=== PATIENT | female | born 1935 | race Caucasian/White ===

== ENCOUNTER 2018-10-27 10:11 | Emergency (ER) | payer MEDICARE ==
[~2018-10-27 10:11] MED LIST: Iopamidol 370 76% 125 ML VIAL FS ONE; Sodium Chloride 0.9% 100 ML BAG ONE
[2018-10-27 11:34] LABS: ALT (SGPT) 21 U/L (8-55); AST (SGOT) 17 U/L (5-34); Alkaline Phosphatase 83 U/L (40-150); Anion Gap 14 mmol/L (10-20); BUN (Urea Nitrogen) 13 mg/dL (9.8-20.1); Band 2 % (5-11); Bilirubin, Total 1.1 mg/dL (0.2-1.2); Bite Cells SLIGHT = 2-5 cells (100X) (0-1/hpf); CK (CPK) 12 U/L (29-168); Calc. Creatinine Clearance 0 mL/min (70-130); Calcium 8.8 mg/dL (7.8-10.44); Carbon Dioxide 29 mmol/L (23-31); Chloride 94 mmol/L (98-107); Estimated GFR-MDRD Greater than 90; Globulin 3.1 g/dL (2.4-3.5); Glucose 146 mg/dL (83-110); Hemoglobin 13.9 g/dL (12.0-16.0); MDiff Complete? YES; Mean Corpuscular HGB CONC 33.1 g/dL (32.0-36.0); Mean Corpuscular Hemoglobin 31.8 pg (27.0-31.0); Mean Platelet Volume 5.9 fL (7.4-10.4); Monocytes 4 % (0-10); Neutrophil 87 % (42-75); PLT Morphology Comment Appears Increased; Platelet Count 404 thou/uL (130-400); Potassium 4.6 mmol/L (3.5-5.1); Protein, Total 6.1 g/dL (6.0-8.3); RBC Distribution Width 13.6 % (11.5-14.5); RBC Morphology Normal; Reactive Lymphocytes 7 % (0-10); Red Blood Cell (RBC) Count 4.38 mill/uL (4.20-5.40); Sodium 132 mmol/L (136-145); White Blood Cell (WBC) Count 13.7 thou/uL (4.8-10.8)
--- NOTE | 2018-10-27 14:17 | CT ---
CT ANGIOGRAM CHEST: Date: 10/27/18 COMPARISON: 11/22/13. HISTORY: Hypoxia. TECHNIQUE: Axial CT imaging at 2.5 mm intervals through the chest with IV contrast using a CT angiogram protocol . Coronal and oblique sagittal 3D reformatted imaging obtained. FINDINGS: Evaluation is limited on the basis of persistent patient motion artifact and marked kyphosis. No obvi ous filling defect is noted within the pulmonary arterial trunk or either main pulmonary artery. Dist al lobar, segmental and subsegmental pulmonary arteries are limited in assessment. No evidence for a central pulmonary arterial embolism is noted. No axillary lymphadenopathy. No obvious mediastinal or hilar adenopathy. Limited assessment of the up per abdomen, limited on the basis of motion artifact, demonstrates atherosclerotic calcification of t he abdominal aorta and its branches. Trace bilateral pleural effusions are noted, left larger than right. No pneumothorax seen on either side. There is a subtle hazy area of ground-glass opacity in the posteromedial aspect of the right upper lo be. There is dense multifocal consolidative change involving the right lower lobe, particularly the s uperior segment. There is patchy posterior focal consolidation involving right middle lobe. There is focal peripheral consolidative change involving the inferior aspect of the lingula and there is near complete consolidation of the left lower lobe. A moderate sized hiatal hernia is present. Review of the osseous structures demonstrates diffuse osteopenia. No worrisome lytic or blastic bone lesion. There is material within the distal mainstem bronchus on the left extending into the bronchi supplyin g the left lower lobe, suggesting aspiration. Follow-up bronchoscopy suggested. IMPRESSION: 1. Limited study demonstrating no central pulmonary arterial embolism. 2. Multifocal consolidative change noted bilaterally, left greater than right. Findings suggest mult ifocal infectious pneumonitis/aspiration. There is evidence of material within the bronchus supplying the left lower lobe and involving the distal left mainstem bronchus, evidence of aspiration and/or m ucus plugging. POS: [facility]
== END 2018-10-27 14:48 | disposition short-term general hospital (02) ==
LOC: MADERS 10:11
DX: R09.02 Hypoxemia (principal); Z86.73 Personal history of transient ischemic attack (TIA), and cerebral infarction without residual deficits; E03.9 Hypothyroidism, unspecified; F03.90 Unspecified dementia, unspecified severity, without behavioral disturbance, psychotic disturbance, mood disturbance, and anxiety; Z87.891 Personal history of nicotine dependence; Z79.899 Other long term (current) drug therapy
CPT/HCPCS: 36415; 71275; 80053; 82550; 84443; 84484; 85025; 87804; 93005; J7050

== ENCOUNTER 2018-11-22 08:09 | Emergency (ER) | payer MEDICARE ==
[~2018-11-22 08:09] MED LIST changes: -Iopamidol 370 76% 125 ML VIAL FS ONE; +Sodium Chloride 0.9% 1,000 ML BAG ONE
[2018-11-22 08:31] LABS: #Basophils 0.1 thou/uL (0.0-0.2); #Eosinphils 0.1 thou/uL (0.0-0.7); #Monocytes 0.7 thou/uL (0.11-0.59); #Neutrophils 4.5 thou/uL (1.40-6.50); %Eosinophils 1.8 % (0.0-10.0); %Lymphocytes 15.2 % (21.0-51.0); %Monocytes 11.4 % (0.0-10.0); %Neutrophils 70.6 % (42.0-75.0); Hemoglobin 12.9 g/dL (12.0-16.0); Mean Corpuscular HGB CONC 31.4 g/dL (32.0-36.0); Mean Corpuscular Hemoglobin 30.7 pg (27.0-31.0); Mean Corpuscular Volume 97.8 fL (78.0-98.0); Mean Platelet Volume 6.1 fL (7.4-10.4); Platelet Count 397 thou/uL (130-400); Red Blood Cell (RBC) Count 4.21 mill/uL (4.20-5.40); White Blood Cell (WBC) Count 6.3 thou/uL (4.8-10.8)
[2018-11-22 08:42] LABS: ALT (SGPT) 10 U/L (8-55); AST (SGOT) 9 U/L (5-34); Albumin 2.8 g/dL (3.4-4.8); Alkaline Phosphatase 73 U/L (40-150); Anion Gap 13 mmol/L (10-20); BUN (Urea Nitrogen) 9 mg/dL (9.8-20.1); Bilirubin, Total 0.6 mg/dL (0.2-1.2); Calc. Creatinine Clearance 0 mL/min (70-130); Calcium 8.5 mg/dL (7.8-10.44); Carbon Dioxide 29 mmol/L (23-31); Chloride 104 mmol/L (98-107); Estimated GFR-MDRD Greater than 90; Globulin 2.5 g/dL (2.4-3.5); Glucose 99 mg/dL (83-110); Potassium 4.1 mmol/L (3.5-5.1); Protein, Total 5.3 g/dL (6.0-8.3); Sodium 142 mmol/L (136-145)
--- NOTE | 2018-11-22 08:56 | RAD ---
CHEST 1 VIEW: Date: 11/22/18 HISTORY: Cough. COMPARISON: 10/27/18. FINDINGS: Cardiac silhouette is magnified, enlarged, and partially obscured by bilateral pleural fluid and biba silar infiltrates. Pulmonary vasculature is engorged with mild bilateral perihilar infiltrate. No hai dence of pneumothorax. IMPRESSION: CHF with bilateral pleural fluid. POS: [facility]
[2018-11-22 09:25] LABS: Bilirubin Negative (Negative); Blood, Urine Large (Negative); Glucose, Urine (Dipstick) Negative (Negative); Leukocyte Moderate (Negative); Nitrite Negative (Negative); Protein, Urine (Dipstick) 100 mg/dL (Neg-Trace); pH, Urine 5.5 (5.0-9.0)
[2018-11-22 09:26] LABS: Bacteria/HPF 1+ HPF (None Seen); Clarity Hazy (Clear); RBC/HPF GREATER THAN 50-TNTC HPF (0-3); Squamous Epithelial 0-3 HPF (0-3)
[2018-11-22] MEDS ORDERED: Piperacillin/Tazobactam 3.375 GM VIAL ONE (09:51)
[2018-11-22] MEDS ORDERED: Sodium Chloride 0.9% 100 ML ONE (09:51)
[2018-11-22] MEDS ORDERED: Diltiazem 125 MG/25 ML ONE (10:08)
== END 2018-11-22 10:43 | disposition short-term general hospital (02) ==
LOC: MADERS 08:09
DX: I48.91 Unspecified atrial fibrillation (principal); I50.9 Heart failure, unspecified; N39.0 Urinary tract infection, site not specified; Z86.73 Personal history of transient ischemic attack (TIA), and cerebral infarction without residual deficits; E03.9 Hypothyroidism, unspecified; F03.90 Unspecified dementia, unspecified severity, without behavioral disturbance, psychotic disturbance, mood disturbance, and anxiety; Z87.891 Personal history of nicotine dependence
CPT/HCPCS: 71045; 80053; 81003; 81015; 83605; 83880; 84443; 84484; 85025; 87040; 93005; 94760; 96365; 96368; 96376; J2543; J7050

== ENCOUNTER 2019-06-24 19:19 | Emergency (ER) | payer MEDICARE ==
[2019-06-24 20:20] LABS: Clarity CLOUDY (Clear)
[2019-06-24 20:21] LABS: Bilirubin Small (Negative); Blood, Urine Trace (Negative); Glucose, Urine (Dipstick) Negative (Negative); Leukocyte Small (Negative); Nitrite Negative (Negative); Protein, Urine (Dipstick) 100 mg/dL (Neg-Trace)
[2019-06-24 20:22] LABS: Bacteria/HPF 2+ HPF (None Seen); RBC/HPF 0-3 HPF (0-3); WBC/HPF 21-50 HPF (0-3); Yeast-Budding 1+ HPF (None Seen)
--- NOTE | 2019-06-24 20:36 | CT ---
CT Brain WO Con: 06/24/2019 7:40 PM CLINICAL HISTORY: Fall with altered mental status. IMAGING TECHNIQUE: Multiple CT images were obtained of the brain without IV contrast. COMPARISON: CT brain dated June 01, 2015 FINDINGS: Infarct: No acute infarct is evident. There is an interval remote infarct involving the left cerebel lum. Stable remote infarct involving the left parietal lobe. There is moderate chronic small vessel white matter ischemic change. Hemorrhage: None.. Hydrocephalus: None.. Basal cisterns: Normal.. Cerebral parenchyma: Normal.. Midline shift: None.. Cerebellum: Normal. Brainstem: Normal. OTHER: Calvarium: Intact.. Visualized Paranasal sinuses: Clear.. Extracranial soft tissues:Normal. IMPRESSION: No acute intracranial abnormality. Chronic ischemic change as above
[2019-06-24 20:42] LABS: INR-International Normal Ratio 2.6; PTT 42.5 SEC (22.9-36.1); Prothrombin Time 27.8 SEC (12.0-14.7)
--- NOTE | 2019-06-24 20:42 | CT ---
CT Cervical Spine WO Con Indication: Fall with altered mental status COMPARISON: None. FINDINGS: The patient couldn't tolerate scanning supine. The patient could only tolerate scanning lay ing on there left side. Exam detail is limited due to patient positioning. Acute fracture/subluxation: None. Spinal alignment: No acute malalignment. Craniocervical junction: Within normal limits. Vertebral body heights: Maintained. Cervical spine degenerative change: There is moderate to severe multilevel spondylosis. There is diff use osteopenia. Lung apices: Clear. IMPRESSION: No definite acute fracture or subluxation evident within the limitations of this exam.
[2019-06-24 20:53] LABS: ALT (SGPT) 12 U/L (8-55); AST (SGOT) 10 U/L (5-34); Albumin 3.5 g/dL (3.4-4.8); Alkaline Phosphatase 74 U/L (40-150); Anion Gap 15 mmol/L (10-20); BUN (Urea Nitrogen) 24 mg/dL (9.8-20.1); Bilirubin, Total 1.1 mg/dL (0.2-1.2); Calc. Creatinine Clearance 0 mL/min (70-130); Calcium 8.4 mg/dL (7.8-10.44); Carbon Dioxide 26 mmol/L (23-31); Chloride 101 mmol/L (98-107); Estimated GFR-MDRD 56; Globulin 2.7 g/dL (2.4-3.5); Glucose 149 mg/dL (83-110); Potassium 3.7 mmol/L (3.5-5.1); Protein, Total 6.2 g/dL (6.0-8.3); Sodium 138 mmol/L (136-145)
[2019-06-24] MEDS ORDERED: cefTRIAXone\\ROCEPHIN 1 GM VIAL ONE (20:56)
[2019-06-24] MEDS ORDERED: Sodium Chloride 0.9% 100 ML ONE (20:56)
[2019-06-24 20:57] LABS: Band 2 % (5-11); Hemoglobin 11.1 g/dL (12.0-16.0); Hypochromia MODERATE=16-30 cells (100X) (0-5/hpf); Lymphocytes 1 % (21-51); MDiff Complete? YES; Mean Corpuscular HGB CONC 30.7 g/dL (32.0-36.0); Mean Corpuscular Hemoglobin 20.4 pg (27.0-31.0); Mean Corpuscular Volume 66.3 fL (78.0-98.0); Mean Platelet Volume 6.2 fL (7.4-10.4); Monocytes 5 % (0-10); Neutrophil 91 % (42-75); Platelet Count 653 thou/uL (130-400); Platelet Morphology Comment Appears Increased; RBC Distribution Width 17.5 % (11.5-14.5); RBC Morphology Abnormal; Red Blood Cell (RBC) Count 5.47 mill/uL (4.20-5.40); White Blood Cell (WBC) Count 23.2 thou/uL (4.8-10.8)
== END 2019-06-24 22:25 | disposition short-term general hospital (02) ==
LOC: MADERS 19:19
DX: I67.9 Cerebrovascular disease, unspecified (principal); L89.619 Pressure ulcer of right heel, unspecified stage; I48.91 Unspecified atrial fibrillation; N39.0 Urinary tract infection, site not specified; E03.9 Hypothyroidism, unspecified; F03.90 Unspecified dementia, unspecified severity, without behavioral disturbance, psychotic disturbance, mood disturbance, and anxiety; Z87.891 Personal history of nicotine dependence; Z79.899 Other long term (current) drug therapy; Z79.01 Long term (current) use of anticoagulants
CPT/HCPCS: 70450; 72125; 80053; 81003; 81015; 83605; 83880; 84484; 85025; 85610; 85730; 87040; 87077; 87086; 87149; 87186; 93005; 94760; 96365; 96374; 96376; J0696; J3490

== ENCOUNTER 2019-07-02 16:21 | Inpatient (IN) | payer MEDICARE ==
[2019-07-02] MEDS ORDERED: ERTAPENEM 1 GM IVPB SCH (17:15)
[2019-07-02] MEDS ORDERED: Furosemide 40 MG TAB PO SCH ×2 (21:00)
[2019-07-02] MEDS ORDERED: Metoprolol Tartrate 50 MG TAB PO SCH (21:00)
[2019-07-02] MEDS: Famotidine 20 MG TAB PO SCH (21:00)
[2019-07-02] MEDS: Apixaban 5 MG TAB PO SCH (22:23)
[2019-07-02] MEDS: Atorvastatin Calcium 10 MG TAB PO SCH (22:24)
[2019-07-02] MEDS: Metoprolol Tartrate 50 MG TAB PO SCH (22:33)
--- NOTE | 2019-07-03 00:10 | HP ---
PRIMARY CARE PHYSICIAN: Barbie Marie MD REASON FOR ADMISSION: To continue IV antibiotic therapy in [facility]. HISTORY OF PRESENT ILLNESS AND HOSPITAL COURSE: Ms. Mckoy is an 83-year-old female with multiple chronic medical conditions including chronic CHF, atrial fibrillation, hypertension, chronic right foot ulceration, dementia, osteoarthritis. The patient was sent to the ER on 06/24/2019, secondary to fall/weakness. Per family, the patient was apparently doing okay at her baseline functional status when they found her on the floor on 06/24/2019 at home. She was sent to [place] [facility] for evaluation. On initial evaluation, there was an area of erythema and ulceration in the medial aspect of the right midfoot region. Per daughter, this wound had dried up and closed for a little while. Per daughter, thw wound opened up again approximately this week before admission. There was some questionable history of some focal weakness prior to admission, but nothing was noted upon admission. She had a CT scan of the brain, which showed an old left posterior parietal stroke. Her echocardiogram was 55% to 60% ejection fraction. Dr. Blackburn was consulted for a questionable transient ischemic attack. The patient is currently on anticoagulation, and statin therapy was added by Dr. Blackburn. On admission, she has a white count of 23,000. The patient was treated for inflammatorychanges/bacteremia. Blood culture came back negative x2. While in the hospital, the patient remained febrile free. There was a concern of possible osteomyelitis per consultation with Dr. Tamayo/Infectious Disease Specialist. The patient had declined any surgical intervention and the plan is just to continue broad-spectrum coverage including Vancomycin and Ertapenem for a protracted period of time. A PICC line was placed and the patient was subsequently transferred to [facility] to complete IV antibiotic therapy until July 10. There was an order from Dr. Tamayo that recommended repeat x-ray of the right foot and consider MRI later on. Then, followup x-rays at 4 and 8 weeks post IV antibiotic therapy. Her white count trended down to 11.3 on 07/02/2019 prior to discharge. Her latest vancomycin trough on 06/29/2019 was 14.8. On admission, the patient was seen resting comfortably in bed. She was eating dinner without issues. There was no family present at the time of examination. The patient reports she is doing well and reports no significant pain or discomfort at this time. She reports no other issues at this time. PAST MEDICAL HISTORY: CHF, hypertension, atrial fibrillation, osteoarthritis, unsteady gait, hypothyroidism, hard of hearing, osteoarthritis, chronic right foot wound that had healed up recently, now reopen. GERD, chronic anemia, hypothyroidism, constipation, dementia, history of falls, COPD and history of diabetes type 2. PAST SURGICAL HISTORY: Thyroidectomy, hysterectomy, cholecystectomy, appendectomy, previous tube for hemothorax. ALLERGIES: NKDA. MEDICATIONS: 1. Eliquis 5 mg p.o. b.i.d. 2. Atorvastatin 10 mg p.o. at bedtime. 3. Digoxin 0.125 mg p.o. q.a.m. 4. Diltiazem 180 mg p.o. daily. 5. Ertapenem 1 g IV q.24 hours. 6. Famotidine 20 mg p.o. b.i.d. 7. Ferrous sulfate 325 mg p.o. q.a.m. 8. Furosemide 40 mg p.o. b.i.d. 9. Ipratropium bromide 3 mL q.4 hours p.r.n. 10. Levothyroxine 88 mcg p.o. q.a.m. 11. Metoprolol 50 mg p.o. b.i.d. 12. Polyethylene glycol 17 g p.o. daily. 13. Vancomycin 1.75 g q.24 hours daily. 14. Saccharomyces 250 mg p.o. daily. SOCIAL HISTORY: She was a previous smoker. No history of alcohol use or substance abuse. She lives independently at home. Her medical decision maker is her daughter, Anne-Marie Mckoy. Daughter lives across and check patient daily. FAMILY HISTORY: Mother of cancer at 78. Father of heart disease and had COPD at age 90. REVIEW OF SYSTEMS: Limited secondary to dementia. The patient denies fever, chills, anorexia, or loss of appetite. Denies chest pain, shortness of breath, sputum production, chronic cough, nausea, vomiting, abdominal pain, or rectal bleeding. PHYSICAL EXAMINATION: VITAL SIGNS: Blood pressure 116/76, temperature 97.3, pulse 90, respiration 20 , O2 saturations 97% on room air. GENERAL: The patient is awake, alert. She knows her name and she knows she is in [facility]. She is interactive, comfortable on exam, not in distress. HEENT: Normocephalic, atraumatic. PERRL. Intact EOM. Anicteric sclerae. Oral mucosa is moist. NECK: Supple. Flat JVD. No bruit. CHEST: Normal excursion. Nonlabored breathing. Clear to auscultation bilaterally. CARDIAC: Rate controlled. Normal S1 and S2. ABDOMEN: Obese and soft. Normoactive bowel sounds. Nondistended, nontender. No rebound or guarding. Negative CVA tenderness bilaterally. EXTREMITIES: No edema. No cyanosis. SKIN: Good turgor. Positive pressure ulcer in the right medial foot covered with clean dressing. No surrounding erythema. NEUROLOGIC: Nonfocal. DTRs 2+. Gait unsteady. PSYCHIATRIC: Appears calm with appropriate demeanor and affect, very talkative. Answers simple questions with appropriateness. ASSESSMENT AND PLAN: 1. Deep wound infection of the right foot with bacteremia. With apparent concern of osteomyelitis, the patient declined surgical management. Recommending broad-spectrum coverage with vancomycin and ertapenem, treat for protracted period of time. To complete IV antibiotic on 07/10/[address] Tamayo' recommendation. 2. Chronic atrial fibrillation, rate controlled. terminal operations supervisor use of anticoagulation. 3. Congestive heart failure, compensated with ejection fraction of 55% to 60%. 4. Hypertension. 5. Hypothyroidism. 6. Chronic gastroesophageal reflux disease. 7. Deconditioning. 8. Unsteady gait. 9. History of fall. The patient is admitted to [facility] to continue IV antibiotic as recommended per Infectious Disease Specialist until 07/10/19. We will continue routine CBC, renal function, ESR and CRP q.weekly. Will obtain Vancomycin level twice weekly. Vancomycin dose to be titrated appropriately. We will continue all current medications and wound care management. Physical therapy and occupational therapy evaluation and treat. GI prophylaxis with proton pump inhibitors. VTE prophylaxis - the patient is already anticoagulated with Xarelto. Further recommendations depending on the hospital course CODE STATUS: DO NOT ATTEMPT TO RESUSCITATE. This was confirmed by daughter, Anne-Marie Mckoy on the phone as of today's conversation. ESTIMATED LENGTH OF STAY: 2 to 3 weeks. DISPOSITION: Home versus Snf. Job ID: [id number] [facility]
[2019-07-03] MEDS: Meropenem 1 GM in Sodium Chloride 0.9% 100 ML IVPB SCH ×3 (01:58→21:31)
[2019-07-03] MEDS: Levothyroxine Sodium 88 MCG TAB PO SCH (05:28)
[2019-07-03] MEDS ORDERED: Prevnar 13-Val Conj/PF 0.5 ML SYRINGE IM ONE (09:00)
[2019-07-03] MEDS: Ferrous Sulfate 325 MG TAB PO SCH (09:16)
[2019-07-03] MEDS: Apixaban 5 MG TAB PO SCH ×2 (09:16→21:31)
[2019-07-03] MEDS: Saccharomyces boulardii 250 MG CAP PO SCH (09:16)
[2019-07-03] MEDS: Famotidine 20 MG TAB PO SCH ×2 (09:16→21:32)
[2019-07-03] MEDS: Polyethylene Glycol 3350 17 GM Packet PO SCH (09:17)
[2019-07-03] MEDS: Digoxin 0.125 MG TAB PO SCH (09:17)
[2019-07-03] MEDS: Furosemide 40 MG TAB PO SCH ×2 (10:40→14:41)
[2019-07-03] MEDS ORDERED: Pharmacy to Dose 1 EACH VANCOMYCIN IVPB PRN (11:05)
[2019-07-03] MEDS: Metoprolol Tartrate 50 MG TAB PO SCH ×2 (12:06→21:32)
[2019-07-03 13:36] LABS: Vancomycin, Trough 18.8 ug/mL
[2019-07-03] MEDS ORDERED: Vancomycin HCl 750 MG VIAL ONE (14:18)
[2019-07-03] MEDS: Vancomycin HCl 750 MG in Sodium Chloride 0.9% 250 ML 250 ML IVPB SCH (14:38)
[2019-07-03] MEDS: Vancomycin HCl 1 GM in Sodium Chloride 0.9% 250 ML 250 ML IVPB SCH (16:51)
[2019-07-03] MEDS ORDERED: Bumetanide 1 MG TAB PO SCH (17:00)
[2019-07-03] MEDS: Atorvastatin Calcium 10 MG TAB PO SCH (21:32)
[2019-07-04] MEDS: Meropenem 1 GM in Sodium Chloride 0.9% 100 ML IVPB SCH ×3 (03:36→19:25)
[2019-07-04] MEDS: Levothyroxine Sodium 88 MCG TAB PO SCH (05:14)
[2019-07-04] MEDS: Polyethylene Glycol 3350 17 GM Packet PO SCH (08:26)
[2019-07-04] MEDS: Ferrous Sulfate 325 MG TAB PO SCH (08:26)
[2019-07-04] MEDS: Furosemide 40 MG TAB PO SCH ×2 (08:27→15:00)
[2019-07-04] MEDS: Famotidine 20 MG TAB PO SCH ×2 (08:27→20:01)
[2019-07-04] MEDS: Saccharomyces boulardii 250 MG CAP PO SCH (08:27)
[2019-07-04] MEDS: Metoprolol Tartrate 50 MG TAB PO SCH ×2 (08:28→20:01)
[2019-07-04] MEDS: Apixaban 5 MG TAB PO SCH ×2 (08:28→20:01)
[2019-07-04] MEDS: Digoxin 0.125 MG TAB PO SCH (08:28)
[2019-07-04] MEDS ORDERED: Bumetanide 1 MG TAB PO SCH (09:00)
[2019-07-04] MEDS: Vancomycin HCl 750 MG in Sodium Chloride 0.9% 250 ML 250 ML IVPB SCH (15:01)
[2019-07-04] MEDS: Vancomycin HCl 1 GM in Sodium Chloride 0.9% 250 ML 250 ML IVPB SCH (15:01)
[2019-07-04] MEDS: Atorvastatin Calcium 10 MG TAB PO SCH (20:01)
[2019-07-05] MEDS: Meropenem 1 GM in Sodium Chloride 0.9% 100 ML IVPB SCH ×3 (03:04→20:02)
[2019-07-05] MEDS: Levothyroxine Sodium 88 MCG TAB PO SCH (05:29)
[2019-07-05] MEDS: Ferrous Sulfate 325 MG TAB PO SCH (09:18)
[2019-07-05] MEDS: Saccharomyces boulardii 250 MG CAP PO SCH (09:18)
[2019-07-05] MEDS: Metoprolol Tartrate 50 MG TAB PO SCH ×2 (09:19→20:06)
[2019-07-05] MEDS: Polyethylene Glycol 3350 17 GM Packet PO SCH (09:19)
[2019-07-05] MEDS: Famotidine 20 MG TAB PO SCH ×2 (09:19→20:06)
[2019-07-05] MEDS: Furosemide 40 MG TAB PO SCH ×2 (09:19→14:16)
[2019-07-05] MEDS: Digoxin 0.125 MG TAB PO SCH (09:19)
[2019-07-05] MEDS: Apixaban 5 MG TAB PO SCH ×2 (09:19→20:06)
[2019-07-05 09:35] LABS: #Basophils 0.1 thou/uL (0.0-0.2); #Eosinphils 0.3 thou/uL (0.0-0.7); #Lymphocytes 1.8 thou/uL (1.20-3.40); #Monocytes 0.8 thou/uL (0.11-0.59); #Neutrophils 10.9 thou/uL (1.40-6.50); %Basophils 0.9 % (0.0-1.0); %Eosinophils 1.8 % (0.0-10.0); %Lymphocytes 11.8 % (21.0-51.0); %Monocytes 7.4 % (0.0-10.0); %Neutrophils 78.1 % (42.0-75.0); Hemoglobin 11.3 g/dL (12.0-16.0); Mean Corpuscular HGB CONC 29.3 g/dL (32.0-36.0); Mean Corpuscular Volume 68.2 fL (78.0-98.0); Mean Platelet Volume 6.2 fL (7.4-10.4); Platelet Count 898 thou/uL (130-400); RBC Distribution Width 18.5 % (11.5-14.5); Red Blood Cell (RBC) Count 5.65 mill/uL (4.20-5.40); White Blood Cell (WBC) Count 13.7 thou/uL (4.8-10.8)
[2019-07-05 12:29] LABS: Microcytosis SLIGHT = 6-15 cells (100X) (0-5/hpf); Polychromasia SLIGHT = 2-3 cells (100X) (0-2/hpf)
[2019-07-05 13:00] LABS: Anion Gap 14 mmol/L (10-20); BUN (Urea Nitrogen) 18 mg/dL (9.8-20.1); CRP (Inflammatory) 3.21 mg/dL (= or < 0.5); Calc. Creatinine Clearance 84 mL/min (70-130); Calcium 8.8 mg/dL (7.8-10.44); Carbon Dioxide 26 mmol/L (23-31); Chloride 103 mmol/L (98-107); Estimated GFR-MDRD 79; Glucose 123 mg/dL (83-110); Potassium 4.1 mmol/L (3.5-5.1); Sodium 139 mmol/L (136-145)
[2019-07-05 13:32] LABS: Vancomycin, Trough 19.8 ug/mL
[2019-07-05] MEDS: Vancomycin HCl 750 MG in Sodium Chloride 0.9% 250 ML 250 ML IVPB SCH (14:15)
[2019-07-05] MEDS: Vancomycin HCl 1 GM in Sodium Chloride 0.9% 250 ML 250 ML IVPB SCH (14:15)
[2019-07-05] MEDS: Atorvastatin Calcium 10 MG TAB PO SCH (20:06)
[2019-07-06] MEDS: Meropenem 1 GM in Sodium Chloride 0.9% 100 ML IVPB SCH ×3 (03:17→21:01)
[2019-07-06] MEDS: Levothyroxine Sodium 88 MCG TAB PO SCH (05:23)
[2019-07-06] MEDS: Ferrous Sulfate 325 MG TAB PO SCH (08:17)
[2019-07-06] MEDS: Apixaban 5 MG TAB PO SCH ×2 (08:18→21:03)
[2019-07-06] MEDS: Digoxin 0.125 MG TAB PO SCH (08:20)
[2019-07-06] MEDS: Polyethylene Glycol 3350 17 GM Packet PO SCH (08:21)
[2019-07-06] MEDS: Famotidine 20 MG TAB PO SCH ×2 (08:21→21:03)
[2019-07-06] MEDS: Furosemide 40 MG TAB PO SCH ×2 (08:21→14:21)
[2019-07-06] MEDS: Metoprolol Tartrate 50 MG TAB PO SCH ×2 (08:21→21:03)
[2019-07-06] MEDS: Saccharomyces boulardii 250 MG CAP PO SCH (08:22)
[2019-07-06] MEDS: Vancomycin HCl 750 MG in Sodium Chloride 0.9% 250 ML 250 ML IVPB SCH (14:28)
[2019-07-06] MEDS: Vancomycin HCl 1 GM in Sodium Chloride 0.9% 250 ML 250 ML IVPB SCH (15:45)
[2019-07-06] MEDS: Atorvastatin Calcium 10 MG TAB PO SCH (21:03)
[2019-07-07] MEDS: Meropenem 1 GM in Sodium Chloride 0.9% 100 ML IVPB SCH ×3 (03:47→20:27)
[2019-07-07] MEDS: Levothyroxine Sodium 88 MCG TAB PO SCH (05:42)
[2019-07-07] MEDS: Saccharomyces boulardii 250 MG CAP PO SCH (08:35)
[2019-07-07] MEDS: Apixaban 5 MG TAB PO SCH ×2 (08:35→20:28)
[2019-07-07] MEDS: Metoprolol Tartrate 50 MG TAB PO SCH ×2 (08:35→20:28)
[2019-07-07] MEDS: Ferrous Sulfate 325 MG TAB PO SCH (08:36)
[2019-07-07] MEDS: Famotidine 20 MG TAB PO SCH ×2 (08:36→20:28)
[2019-07-07] MEDS: Furosemide 40 MG TAB PO SCH ×2 (08:36→13:35)
[2019-07-07] MEDS: Digoxin 0.125 MG TAB PO SCH (08:36)
[2019-07-07] MEDS: Polyethylene Glycol 3350 17 GM Packet PO SCH (08:37)
[2019-07-07] MEDS: Vancomycin HCl 750 MG in Sodium Chloride 0.9% 250 ML 250 ML IVPB SCH (13:34)
[2019-07-07] MEDS: Vancomycin HCl 1 GM in Sodium Chloride 0.9% 250 ML 250 ML IVPB SCH (14:40)
[2019-07-07] MEDS: Atorvastatin Calcium 10 MG TAB PO SCH (20:28)
[2019-07-08] MEDS: Meropenem 1 GM in Sodium Chloride 0.9% 100 ML IVPB SCH ×3 (04:52→20:43)
[2019-07-08] MEDS: Levothyroxine Sodium 88 MCG TAB PO SCH (05:00)
[2019-07-08 05:16] LABS: Hemoglobin 10.9 g/dL (12.0-16.0); Platelet Count 819 thou/uL (130-400)
[2019-07-08] MEDS: Furosemide 40 MG TAB PO SCH ×2 (08:20→13:20)
[2019-07-08] MEDS: Apixaban 5 MG TAB PO SCH ×2 (08:20→20:51)
[2019-07-08] MEDS: Metoprolol Tartrate 50 MG TAB PO SCH ×2 (08:20→20:52)
[2019-07-08] MEDS: Famotidine 20 MG TAB PO SCH ×2 (08:20→20:55)
[2019-07-08] MEDS: Ferrous Sulfate 325 MG TAB PO SCH (08:20)
[2019-07-08] MEDS: Saccharomyces boulardii 250 MG CAP PO SCH (08:20)
[2019-07-08] MEDS: Digoxin 0.125 MG TAB PO SCH (08:21)
[2019-07-08] MEDS: Polyethylene Glycol 3350 17 GM Packet PO SCH (08:21)
[2019-07-08] MEDS: Nystatin Cream 15 GM TUBE TOP SCH ×2 (08:21→20:56)
[2019-07-08 13:12] LABS: Vancomycin, Trough 16.4 ug/mL
[2019-07-08] MEDS: Vancomycin HCl 750 MG in Sodium Chloride 0.9% 250 ML 250 ML IVPB SCH (13:20)
[2019-07-08] MEDS: Vancomycin HCl 1 GM in Sodium Chloride 0.9% 250 ML 250 ML IVPB SCH (14:16)
[2019-07-08] MEDS: Atorvastatin Calcium 10 MG TAB PO SCH (20:52)
[2019-07-09] MEDS: Meropenem 1 GM in Sodium Chloride 0.9% 100 ML IVPB SCH ×3 (04:27→20:14)
[2019-07-09] MEDS: Levothyroxine Sodium 88 MCG TAB PO SCH (05:02)
[2019-07-09] MEDS: Polyethylene Glycol 3350 17 GM Packet PO SCH (08:31)
[2019-07-09] MEDS: Digoxin 0.125 MG TAB PO SCH (08:33)
[2019-07-09] MEDS: Saccharomyces boulardii 250 MG CAP PO SCH (08:33)
[2019-07-09] MEDS: Apixaban 5 MG TAB PO SCH ×2 (08:33→20:15)
[2019-07-09] MEDS: Furosemide 40 MG TAB PO SCH ×2 (08:33→14:59)
[2019-07-09] MEDS: Metoprolol Tartrate 50 MG TAB PO SCH ×2 (08:34→20:15)
[2019-07-09] MEDS: Famotidine 20 MG TAB PO SCH ×2 (08:34→20:15)
[2019-07-09] MEDS: Ferrous Sulfate 325 MG TAB PO SCH (08:34)
[2019-07-09] MEDS: Nystatin Cream 15 GM TUBE TOP SCH ×2 (08:35→20:15)
[2019-07-09] MEDS: Vancomycin HCl 750 MG in Sodium Chloride 0.9% 250 ML 250 ML IVPB SCH (14:58)
[2019-07-09] MEDS: Vancomycin HCl 1 GM in Sodium Chloride 0.9% 250 ML 250 ML IVPB SCH (14:59)
[2019-07-09] MEDS: Atorvastatin Calcium 10 MG TAB PO SCH (20:15)
[2019-07-10] MEDS: Meropenem 1 GM in Sodium Chloride 0.9% 100 ML IVPB SCH ×2 (03:49→13:17)
[2019-07-10] MEDS: Levothyroxine Sodium 88 MCG TAB PO SCH (05:42)
[2019-07-10] MEDS: Ferrous Sulfate 325 MG TAB PO SCH (08:32)
[2019-07-10] MEDS: Famotidine 20 MG TAB PO SCH ×2 (08:33→21:05)
[2019-07-10] MEDS: Apixaban 5 MG TAB PO SCH ×2 (08:33→21:05)
[2019-07-10] MEDS: Digoxin 0.125 MG TAB PO SCH (08:33)
[2019-07-10] MEDS: Metoprolol Tartrate 50 MG TAB PO SCH ×2 (08:34→21:05)
[2019-07-10] MEDS: Nystatin Cream 15 GM TUBE TOP SCH ×2 (08:35→21:05)
[2019-07-10] MEDS: Polyethylene Glycol 3350 17 GM Packet PO SCH (08:35)
[2019-07-10] MEDS: Saccharomyces boulardii 250 MG CAP PO SCH (08:36)
[2019-07-10] MEDS: Furosemide 40 MG TAB PO SCH ×2 (08:36→14:49)
[2019-07-10] MEDS: Vancomycin HCl 750 MG in Sodium Chloride 0.9% 250 ML 250 ML IVPB SCH (13:30)
[2019-07-10] MEDS: Vancomycin HCl 1 GM in Sodium Chloride 0.9% 250 ML 250 ML IVPB SCH (14:45)
[2019-07-10] MEDS: Atorvastatin Calcium 10 MG TAB PO SCH (21:05)
[2019-07-10] MEDS: Doxycycline 100 MG CAP PO SCH (21:05)
[2019-07-11 05:11] LABS: Hemoglobin 9.9 g/dL (12.0-16.0); Platelet Count 725 thou/uL (130-400)
[2019-07-11] MEDS: Levothyroxine Sodium 88 MCG TAB PO SCH (05:28)
[2019-07-11] MEDS: Doxycycline 100 MG CAP PO SCH ×2 (08:21→20:34)
[2019-07-11] MEDS: Ferrous Sulfate 325 MG TAB PO SCH (08:21)
[2019-07-11] MEDS: Saccharomyces boulardii 250 MG CAP PO SCH (08:21)
[2019-07-11] MEDS: Nystatin Cream 15 GM TUBE TOP SCH ×2 (08:22→20:36)
[2019-07-11] MEDS: Famotidine 20 MG TAB PO SCH ×2 (08:22→20:34)
[2019-07-11] MEDS: Digoxin 0.125 MG TAB PO SCH (08:22)
[2019-07-11] MEDS: Apixaban 5 MG TAB PO SCH ×2 (08:22→20:35)
[2019-07-11] MEDS: Furosemide 40 MG TAB PO SCH ×2 (08:22→13:29)
[2019-07-11] MEDS: Metoprolol Tartrate 50 MG TAB PO SCH ×2 (08:22→20:35)
[2019-07-11] MEDS: Polyethylene Glycol 3350 17 GM Packet PO SCH (08:23)
[2019-07-11 13:34] VITALS: BMI 37.3
[2019-07-11] MEDS: Atorvastatin Calcium 10 MG TAB PO SCH (20:35)
[2019-07-12] MEDS: Levothyroxine Sodium 88 MCG TAB PO SCH (05:07)
[2019-07-12] MEDS: Polyethylene Glycol 3350 17 GM Packet PO SCH (08:09)
[2019-07-12] MEDS: Apixaban 5 MG TAB PO SCH ×2 (08:11→20:09)
[2019-07-12] MEDS: Famotidine 20 MG TAB PO SCH ×2 (08:11→20:09)
[2019-07-12] MEDS: Metoprolol Tartrate 50 MG TAB PO SCH ×2 (08:11→20:09)
[2019-07-12] MEDS: Digoxin 0.125 MG TAB PO SCH (08:11)
[2019-07-12] MEDS: Ferrous Sulfate 325 MG TAB PO SCH (08:11)
[2019-07-12] MEDS: Saccharomyces boulardii 250 MG CAP PO SCH (08:11)
[2019-07-12] MEDS: Doxycycline 100 MG CAP PO SCH ×2 (08:11→20:09)
[2019-07-12] MEDS: Furosemide 40 MG TAB PO SCH ×2 (08:11→13:37)
[2019-07-12] MEDS: Nystatin Cream 15 GM TUBE TOP SCH ×2 (08:12→20:10)
[2019-07-12] MEDS: Atorvastatin Calcium 10 MG TAB PO SCH (20:09)
[2019-07-13] MEDS: Levothyroxine Sodium 88 MCG TAB PO SCH (06:07)
[2019-07-13] MEDS: Polyethylene Glycol 3350 17 GM Packet PO SCH (08:36)
[2019-07-13] MEDS: Famotidine 20 MG TAB PO SCH ×2 (08:37→20:16)
[2019-07-13] MEDS: Digoxin 0.125 MG TAB PO SCH (08:37)
[2019-07-13] MEDS: Doxycycline 100 MG CAP PO SCH ×2 (08:37→20:16)
[2019-07-13] MEDS: Ferrous Sulfate 325 MG TAB PO SCH (08:37)
[2019-07-13] MEDS: Apixaban 5 MG TAB PO SCH ×2 (08:37→20:16)
[2019-07-13] MEDS: Furosemide 40 MG TAB PO SCH ×2 (08:37→14:02)
[2019-07-13] MEDS: Metoprolol Tartrate 50 MG TAB PO SCH ×2 (08:37→20:16)
[2019-07-13] MEDS: Saccharomyces boulardii 250 MG CAP PO SCH (08:37)
[2019-07-13] MEDS: Nystatin Cream 15 GM TUBE TOP SCH ×2 (08:42→20:17)
[2019-07-13] MEDS: Atorvastatin Calcium 10 MG TAB PO SCH (20:16)
[2019-07-14] MEDS: Levothyroxine Sodium 88 MCG TAB PO SCH (05:54)
[2019-07-14] MEDS: Saccharomyces boulardii 250 MG CAP PO SCH (08:59)
[2019-07-14] MEDS: Digoxin 0.125 MG TAB PO SCH (08:59)
[2019-07-14] MEDS: Ferrous Sulfate 325 MG TAB PO SCH (08:59)
[2019-07-14] MEDS: Apixaban 5 MG TAB PO SCH ×2 (08:59→21:18)
[2019-07-14] MEDS: Famotidine 20 MG TAB PO SCH ×2 (08:59→21:19)
[2019-07-14] MEDS: Furosemide 40 MG TAB PO SCH ×2 (08:59→15:22)
[2019-07-14] MEDS: Polyethylene Glycol 3350 17 GM Packet PO SCH (09:00)
[2019-07-14] MEDS: Metoprolol Tartrate 50 MG TAB PO SCH ×2 (09:00→21:19)
[2019-07-14] MEDS: Doxycycline 100 MG CAP PO SCH ×2 (09:00→21:19)
[2019-07-14] MEDS: Nystatin Cream 15 GM TUBE TOP SCH ×2 (09:00→21:21)
[2019-07-14] MEDS: Atorvastatin Calcium 10 MG TAB PO SCH (21:18)
[2019-07-15] MEDS: Levothyroxine Sodium 88 MCG TAB PO SCH (05:58)
[2019-07-15] MEDS: Saccharomyces boulardii 250 MG CAP PO SCH (08:33)
[2019-07-15] MEDS: Apixaban 5 MG TAB PO SCH ×2 (08:33→21:05)
[2019-07-15] MEDS: Furosemide 40 MG TAB PO SCH ×2 (08:33→14:03)
[2019-07-15] MEDS: Ferrous Sulfate 325 MG TAB PO SCH (08:34)
[2019-07-15] MEDS: Metoprolol Tartrate 50 MG TAB PO SCH ×2 (08:34→21:04)
[2019-07-15] MEDS: Polyethylene Glycol 3350 17 GM Packet PO SCH (08:34)
[2019-07-15] MEDS: Digoxin 0.125 MG TAB PO SCH (08:34)
[2019-07-15] MEDS: Doxycycline 100 MG CAP PO SCH ×2 (08:34→21:04)
[2019-07-15] MEDS: Famotidine 20 MG TAB PO SCH ×2 (08:37→21:04)
[2019-07-15] MEDS: Nystatin Cream 15 GM TUBE TOP SCH ×2 (08:38→21:07)
[2019-07-15] MEDS: Atorvastatin Calcium 10 MG TAB PO SCH (21:04)
[2019-07-16] MEDS: Levothyroxine Sodium 88 MCG TAB PO SCH (05:24)
[2019-07-16 08:10] VITALS: BP 123/56; TEMP 97.2
[2019-07-16] MEDS: Doxycycline 100 MG CAP PO SCH (08:36)
[2019-07-16] MEDS: Saccharomyces boulardii 250 MG CAP PO SCH (08:36)
[2019-07-16] MEDS: Apixaban 5 MG TAB PO SCH (08:36)
[2019-07-16] MEDS: Digoxin 0.125 MG TAB PO SCH (08:36)
[2019-07-16] MEDS: Metoprolol Tartrate 50 MG TAB PO SCH (08:36)
[2019-07-16] MEDS: Furosemide 40 MG TAB PO SCH ×2 (08:36→13:18)
[2019-07-16] MEDS: Ferrous Sulfate 325 MG TAB PO SCH (08:36)
[2019-07-16] MEDS: Polyethylene Glycol 3350 17 GM Packet PO SCH (08:37)
[2019-07-16] MEDS: Nystatin Cream 15 GM TUBE TOP SCH (08:37)
[2019-07-16] MEDS: Famotidine 20 MG TAB PO SCH (08:37)
--- NOTE | 2019-07-17 03:25 | DIS ---
DATE OF ADMISSION: 07/02/2019 DATE OF DISCHARGE: 07/16/2019 PRIMARY CARE PHYSICIAN: Barbie Marie MD REASON FOR ADMISSION: IV antibiotic therapy in [facility] Bed. DIAGNOSES: 1. Osteomyelitis of the right foot, status post oral antibiotic therapy with doxycycline for 3 months per infectious doctor's recommendation. 2. Right foot wound ulcer, chronic recurrent. 3. Chronic atrial fibrillation, rate controlled. 4. Long-term use of anticoagulant/Xarelto. 5. Congestive heart failure, compensated with ejection fraction of 55% to 60%. 6. Hypertension, stable. 7. Hypothyroidism. 8. Gastroesophageal reflux, chronic. 9. Deconditioning/general weakness, improving. 10. Unsteady gait. 11. History of fall. 12. Dementia. 13. Anemia. DISCHARGE MEDICATIONS: 1. Eliquis decreased to 2.5 mg p.o. b.i.d. starting 07/17/2019. 2. Atorvastatin 10 mg p.o. at bedtime. 3. Digoxin 0.125 mg q.a.m. 4. Diltiazem capsule daily. 5. Doxycycline 100 mg p.o. b.i.d. until October or October 05. 6. Famotidine 20 mg p.o. b.i.d. 7. Ferrous sulfate 325 mg p.o. q.a.m. 8. Furosemide 40 mg p.o. b.i.d. 9. DuoNeb q.4 hours p.r.n. for shortness of breath or wheezing. 10. Levothyroxine 88 mcg p.o. daily. 11. Metoprolol tartrate 50 mg p.o. b.i.d. 12. Nystatin cream topical b.i.d. 13. Polyethylene glycol 17 g p.o. daily. 14. Florastor 250 mg p.o. daily. DISPOSITION: Transferred to [facility] per family's request prior to transition to going back home. CONDITION ON DISCHARGE: Stable. DISCHARGE INSTRUCTIONS: 1. Diet: Regular. 2. Activity: To use rolling walker at all times. High risk for fall. Fall precautions. 3. To continue wound care daily and change of dressing daily and p.r.n. 4. Refer to for wound care management once admitted to the senior care. 5. Follow up with Dr. Tamayo as directed. 6. Dr. Marie to continue care in the senior care. HISTORY OF PRESENT ILLNESS AND HOSPITAL COURSE: Ms. Mckoy is an 83-year-old female with multiple chronic medical conditions including CHF, chronic atrial fibrillation, hypertension, chronic right foot wound ulceration, dementia, osteoarthritis. The patient was sent to the ER on 06/24/2019, secondary to fall/weakness. Per family, the patient is currently doing okay at her baseline functional status at home when they found her on the floor on 06/24/2019 at her own home. She was sent to [place] ER for further evaluation. On initial evaluation, there was an area of erythema and ulceration in the right medial aspect of the right midfoot region. Per daughter, the wound has dried up and closed for a little while until few days prior to admission, the patient's wound opened up again. There was a history of some focal weakness prior to admission, but nothing noted upon admission. Her CT scan of the brain showed an old posterior parietal stroke. Otherwise, no acute intracranial process was seen. She had an echocardiogram and with 55% to 60% ejection fraction. At that time on admission at [facility], Dr. Blackburn was consulted for questionable transient ischemic attack. The patient is currently on anticoagulation. Statin therapy was added by Dr. Blackburn otherwise, no significant stroke was noted. On admission, her white count was significantly elevated at 23,000. The patient was treated for inflammatory changes/bacteremia. Her blood culture came back negative x2. She remained febrile free over the course. There was a concern of possible osteomyelitis per consultation with Dr. Tamayo/infectious disease specialist. The patient had declined surgical intervention and the plan is just to continue broad-spectrum coverage. The patient received vancomycin and ertapenem through PICC line. The patient was then transferred to [facility] on 07/02/2019, to continue IV antibiotic. Serial lab works including CBC, CRP, ESR, and vancomycin trough were done at [facility]. Overall, leukocytosis had trended down. The patient remained febrile free while at [facility]. The patient followed up with Dr. Tamayo after IV antibiotic was completed on 07/10/2019. The patient was switched by ID to oral doxycycline 100 mg p.o. b.i.d. for long-term use up to 3 months. The patient's wound care has been continued while in the Skilled, the patient continued therapy. The patient had improved a lot on her mobility and functional status. She was walking 200 feet using her rolling walker prior to discharge. Her gait remained antalgic with slow weston. She had a wide-based gait and flexed posture. The patient had made significant progress, but has not met her goal yet. After lengthy discussion with the daughter for her disposition, daughter was uncomfortable taking the patient back home at this point, thus transferred to [facility] for continued rehab and wound care management until she is stabilized to go back home. Labs prior to discharge on 07/05/2019, hemoglobin 11.3, hematocrit 38.5, WBC 13.7, platelets 898. On 07/08, hemoglobin 10.9, hematocrit 34.8, platelets 819. On 07/11/2019, hemoglobin 9.9, hematocrit 32.4, platelets 725. Overall, platelet count has trended down, however, her hemoglobin has gradually trended down as well. Prior to discharge, patient's Xarelto was decreased down to 2.5 mg p.o. b.i.d. and recommending to continue serial blood work at the senior care. We will continue iron sulfate. Overall, the patient reports she is doing a lot better. She is much stronger and agreed to the plan of care. Vital signs prior to discharge: Blood pressure 123/56, temp 97.2, pulse 78, respirations 14, O2 saturations 96% on room air. Weight 285 pounds, height 4 feet 11 inches. TIME SPENT: Time spent on this discharge 32 minutes in examining the patient and coordinating care. Job ID: [id number]
[2019-07-17] MEDS ORDERED: Apixaban 5 MG TAB PO SCH (09:00)
== END 2019-07-16 16:41 | DRG 638 ==
LOC: MADMS 16:30
PROVIDERS: ADMIT Family Medicine; ATTEND Family Medicine
DX: E11.69 Type 2 diabetes mellitus with other specified complication (principal); M86.8X7 Other osteomyelitis, ankle and foot; I11.0 Hypertensive heart disease with heart failure; I50.9 Heart failure, unspecified; M19.91 Primary osteoarthritis, unspecified site; E03.9 Hypothyroidism, unspecified; K21.9 Gastro-esophageal reflux disease without esophagitis; F03.90 Unspecified dementia, unspecified severity, without behavioral disturbance, psychotic disturbance, mood disturbance, and anxiety; J44.9 Chronic obstructive pulmonary disease, unspecified; E11.9 Type 2 diabetes mellitus without complications; I48.2 Chronic atrial fibrillation; R53.81 Other malaise; R26.89 Other abnormalities of gait and mobility; E11.621 Type 2 diabetes mellitus with foot ulcer; L97.519 Non-pressure chronic ulcer of other part of right foot with unspecified severity; D64.9 Anemia, unspecified; Z90.710 Acquired absence of both cervix and uterus; Z90.89 Acquired absence of other organs; Z90.49 Acquired absence of other specified parts of digestive tract; Z79.899 Other long term (current) drug therapy; Z87.891 Personal history of nicotine dependence; Z66 Do not resuscitate
CPT/HCPCS: 36415; 80048; 80202; 82565; 85014; 85018; 85025; 85049; 85652; 86140; 97602; G0283-GP; J2185; J3370; J3490; J7050

== ENCOUNTER 2019-09-16 11:06 | Emergency (ER) | payer MEDICARE ==
[2019-09-16] MEDS ORDERED: Sodium Chloride 0.9% 1,000 ML ONE (11:41)
[2019-09-16 12:00] LABS: Bilirubin Negative (Negative); Blood, Urine Negative (Negative); Clarity Clear (Clear); Glucose, Urine (Dipstick) Negative (Negative); Leukocyte Negative (Negative); Nitrite Negative (Negative); Protein, Urine (Dipstick) Negative (Neg-Trace); Urobilinogen 0.2 mg/dL (Less than 2)
[2019-09-16 12:15] LABS: ALT (SGPT) 11 U/L (8-55); AST (SGOT) 11 U/L (5-34); Albumin 3.7 g/dL (3.4-4.8); Alkaline Phosphatase 65 U/L (40-110); Anion Gap 15 mmol/L (10-20); BUN (Urea Nitrogen) 26 mg/dL (9.8-20.1); Bilirubin, Total 0.6 mg/dL (0.2-1.2); Calc. Creatinine Clearance 0 mL/min (70-130); Calcium 8.2 mg/dL (7.8-10.44); Carbon Dioxide 27 mmol/L (23-31); Chloride 104 mmol/L (98-107); Estimated GFR-MDRD 70; Globulin 2.6 g/dL (2.4-3.5); Glucose 111 mg/dL (83-110); Potassium 3.9 mmol/L (3.5-5.1); Protein, Total 6.3 g/dL (6.0-8.3); Sodium 142 mmol/L (136-145)
[2019-09-16 12:16] LABS: #Basophils 0.2 thou/uL (0.0-0.2); #Eosinphils 0.1 thou/uL (0.0-0.7); #Lymphocytes 1.5 thou/uL (1.20-3.40); #Monocytes 1.2 thou/uL (0.11-0.59); #Neutrophils 10.8 thou/uL (1.40-6.50); %Basophils 1.1 % (0.0-1.0); %Eosinophils 0.6 % (0.0-10.0); %Lymphocytes 10.8 % (21.0-51.0); %Neutrophils 78.5 % (42.0-75.0); Anisocytosis SLIGHT = 6-15 cells (100X) (0-5/hpf); Hemoglobin 15.9 g/dL (12.0-16.0); Hypochromia SLIGHT = 6-15 cells (100X) (0-5/hpf); Large Platelets SLIGHT; MDiff Complete? YES; Mean Corpuscular HGB CONC 28.7 g/dL (32.0-36.0); Mean Corpuscular Hemoglobin 24.3 pg (27.0-31.0); Mean Corpuscular Volume 84.8 fL (78.0-98.0); Platelet Count 840 thou/uL (130-400); Platelet Morphology Comment Appears Increased; RBC Distribution Width 19.1 % (11.5-14.5); Red Blood Cell (RBC) Count 6.53 mill/uL (4.20-5.40); White Blood Cell (WBC) Count 13.7 thou/uL (4.8-10.8)
--- NOTE | 2019-09-16 12:24 | RAD ---
PORTABLE CHEST: Date: 09/16/19 HISTORY: Atrial fibrillation. COMPARISON: 06/25/19 study. FINDINGS: Heart size is enlarged. Chronic appearing lung changes are seen without focal infiltrates or signs of failure. IMPRESSION: Cardiomegaly with chronic appearing lung change. POS: [facility]
[2019-09-16] MEDS ORDERED: Sodium Chloride 0.9% 100 ML ONE (14:52)
[2019-09-16] MEDS ORDERED: Diltiazem 125 MG/25 ML ONE (14:53)
== END 2019-09-16 15:07 | disposition short-term general hospital (02) ==
LOC: MADERS 11:06
DX: I48.91 Unspecified atrial fibrillation (principal); E03.9 Hypothyroidism, unspecified; I49.9 Cardiac arrhythmia, unspecified; F03.90 Unspecified dementia, unspecified severity, without behavioral disturbance, psychotic disturbance, mood disturbance, and anxiety; Z86.73 Personal history of transient ischemic attack (TIA), and cerebral infarction without residual deficits; Z87.891 Personal history of nicotine dependence
CPT/HCPCS: 71045; 80053; 81003; 83880; 84484; 85025; 93005; 96361; 96374; 96376; J3490; J7050

== ENCOUNTER 2019-11-25 16:14 | Inpatient (IN) | payer MEDICARE ==
[2019-11-25 17:42] VITALS: BMI 29.7
[2019-11-25] MEDS ORDERED: CHLORPROMAZINE HCL 25 MG PO PRN (18:05)
[2019-11-25] MEDS ORDERED: Hyoscyamine Sulfate SL 0.125 mg Tablet SL PRN (18:05)
[2019-11-25] MEDS ORDERED: Acetaminophen 650 MG Suppository PR PRN (18:15)
[2019-11-25] MEDS: Sulfameth/Trimethoprim DS 800-160mg TAB PO SCH (22:09)
[2019-11-25] MEDS: Lorazepam 0.5 MG TAB PO PRN (22:09)
[2019-11-25] MEDS: Metoprolol Tartrate 50 MG TAB PO SCH (22:09)
[2019-11-26] MEDS: Potassium Chloride 10 MEQ TAB PO SCH (08:26)
[2019-11-26] MEDS: Sulfameth/Trimethoprim DS 800-160mg TAB PO SCH ×2 (08:26→20:07)
[2019-11-26] MEDS: Famotidine 20 MG TAB PO SCH (08:26)
[2019-11-26] MEDS: Metoprolol Tartrate 50 MG TAB PO SCH ×2 (08:26→20:07)
[2019-11-26] MEDS: Lorazepam 0.5 MG TAB PO PRN (09:03)
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
[2019-11-26] MEDS: traZODone HCl 50 MG TAB PO SCH (20:07)
[2019-11-27] MEDS: Lorazepam 0.5 MG TAB PO PRN ×2 (01:51→17:39)
[2019-11-27] MEDS: Levothyroxine Sodium 88 MCG TAB PO SCH (05:53)
[2019-11-27] MEDS: Famotidine 20 MG TAB PO SCH (10:03)
[2019-11-27] MEDS: Potassium Chloride 10 MEQ TAB PO SCH (10:03)
[2019-11-27] MEDS: Metoprolol Tartrate 50 MG TAB PO SCH ×2 (10:03→21:14)
[2019-11-27] MEDS: Sulfameth/Trimethoprim DS 800-160mg TAB PO SCH ×2 (10:03→21:15)
[2019-11-27] MEDS: traZODone HCl 50 MG TAB PO SCH (21:14)
[2019-11-27] MEDS: Nystatin Ointment 15 GM TUBE TOP SCH (21:14)
[2019-11-28] MEDS: Levothyroxine Sodium 88 MCG TAB PO SCH (05:51)
[2019-11-28] MEDS: Metoprolol Tartrate 50 MG TAB PO SCH ×2 (07:52→21:26)
[2019-11-28] MEDS: Famotidine 20 MG TAB PO SCH (07:53)
[2019-11-28] MEDS: Lorazepam 0.5 MG TAB PO PRN ×4 (07:53→23:58)
[2019-11-28] MEDS: Sulfameth/Trimethoprim DS 800-160mg TAB PO SCH ×2 (07:54→21:26)
[2019-11-28] MEDS: Nystatin Ointment 15 GM TUBE TOP SCH ×2 (07:54→21:27)
[2019-11-28] MEDS: Potassium Chloride 10 MEQ TAB PO SCH (07:54)
[2019-11-28] MEDS ORDERED: Senokot S 8.6-50 MG TAB PO PRN (20:37)
[2019-11-28] MEDS ORDERED: Bisacodyl 10 MG SUPP PR PRN (20:38)
[2019-11-28] MEDS: traZODone HCl 50 MG TAB PO SCH (21:26)
[2019-11-29] MEDS: Levothyroxine Sodium 88 MCG TAB PO SCH (05:23)
[2019-11-29 08:41] VITALS: BP 98/54; TEMP 97.6
[2019-11-29] MEDS: Metoprolol Tartrate 50 MG TAB PO SCH (09:07)
[2019-11-29] MEDS: Sulfameth/Trimethoprim DS 800-160mg TAB PO SCH (09:07)
[2019-11-29] MEDS: Potassium Chloride 10 MEQ TAB PO SCH (09:07)
[2019-11-29] MEDS: Nystatin Ointment 15 GM TUBE TOP SCH (09:08)
[2019-11-29] MEDS: Famotidine 20 MG TAB PO SCH (09:08)
--- NOTE | 2019-12-02 09:06 | DIS ---
DATE OF ADMISSION: 11/25/2019 DATE OF DISCHARGE: 11/29/2019 PRIMARY CARE PHYSICIAN: Barbie Marie MD. CHIEF COMPLAINT: Acute left-sided weakness, drooling. FINAL DIAGNOSES: 1. Acute left-sided paralysis, probable cerebrovascular accident, unspecified. 2. Acute on chronic dysphagia likely cerebrovascular accident sequela. 3. Dementia with behavioral disturbances. 4. Chronic atrial fibrillation. Not a good candidate for long-term use of anticoagulant secondary to high risk for falling. 5. Hypothyroidism. 6. Hypertensive heart disease. 7. Chronic gastroesophageal reflux disease. 8. History of hyperlipidemia. 9. Diastolic dysfunction. 10. History of deep venous thrombosis, history of cerebrovascular accident, transient ischemic attack. 11. History of factor V heterogeneous mutation. 12. Chronic ankylosing spondylitis. 13. Abnormality of gait and mobility. 14. At risk for fall. 15. Code status: DNAR. DISPOSITION: [facility] per family's request for palliative care. CONDITION ON DISCHARGE: Stable. PROGNOSIS: Long-term prognosis; poor. MEDICATIONS: 1. Acetaminophen 650 mg per rectum q.4 hours p.r.n. 2. Bisacodyl 10 mg p.o. per rectum daily. 3. Diltiazem 240 mg CD daily. 4. Famotidine 20 mg p.o. daily. 5. Hyoscyamine 0.125 mg sublingual q.4 hours p.r.n. 6. DuoNeb q.4 hours p.r.n. 7. Levothyroxine 88 mcg p.o. daily. 8. Lorazepam 0.5 mg p.o. q.6 hours p.r.n. 9. Metoprolol 50 mg p.o. b.i.d. 10. Nystatin cream 15 g p.o. b.i.d. 11. Sennoside/docusate one tablet p.o. b.i.d. p.r.n. 12. Trazodone 50 mg p.o. at bedtime p.r.n. DIET: Pureed and nectar thick in consistency liquid. ACTIVITIES: 1. Complete bed-bound. 2. Fall precautions. 3. Aspiration precautions. To keep head elevated 30 degrees and above at all times. 4. To notify Dr. Marie once the [facility] is [facility] to the [facility]. HISTORY OF THE PRESENT ILLNESS AND HOSPITAL COURSE: Ms. Ean is an 83-year-old female with multiple chronic medical conditions including a long-term hypertension, diastolic CHF, chronic atrial fibrillation, previous CVA, TIA, hypothyroidism, dyslipidemia, chronic GERD, and worsening dementia. The patient is currently under palliative care with hospice. She was taken cared all by her daughter/MPOA surrogate decision maker, Anne-Marie Mckoy at home. Family has been having a hard time taking care of the patient at home as her overall cognitive function and mobility status have declined markedly overtime. She was recently sent to [facility] for respite care by the family. At the [facility], the patient was noted to have an acute onset of left-sided weakness associated with dysphagia and drooling. The patient's initial workup in the [facility] included UA with some pyuria, for which, she was treated with oral antibiotic. The patient had completed the 1-week course of Bactrim during this hospitalization. Imaging studies of the left hand, arm, forearm, and shoulder showed an anterior inferior dislocation of the left shoulder. Due to the patient's overall decline status and advanced dementia/confusion, family declined further aggressive intervention for this. The patient's symptoms have significantly worsened and the patient was unable to tolerate regular diet and facial paralysis had worsened as well as left-sided hemiplegia. Family then requested sending the patient to [facility] for further observation of possible CVA. The patient was evaluated by PT, ST, and OT while in the hospital. The patient's severe confusion was the main barrier of following instructions for that therapy. Family requested no further aggressive interventions at this time-no further neurologic workup was done including imaging studies. The patient tolerated current diet and overall, cognitive status has stabilized. After further discussion with the family regarding plan of care, family decided to transfer the patient to [facility] for long-term care. On 11/29/2019, the patient was transferred to [place] per family's request to resume palliative care with [facility]. Code status, DNAR. Job ID: [id number]
== END 2019-11-29 11:35 | DRG 57 ==
LOC: MADMS 16:35
PROVIDERS: ADMIT Family Medicine; ATTEND Family Medicine
DX: I69.354 Hemiplegia and hemiparesis following cerebral infarction affecting left non-dominant side (principal); D68.51 Activated protein C resistance; I10 Essential (primary) hypertension; E78.5 Hyperlipidemia, unspecified; E03.9 Hypothyroidism, unspecified; I48.0 Paroxysmal atrial fibrillation; E66.9 Obesity, unspecified; K21.9 Gastro-esophageal reflux disease without esophagitis; Z90.710 Acquired absence of both cervix and uterus; Z90.49 Acquired absence of other specified parts of digestive tract; Z79.899 Other long term (current) drug therapy; R26.9 Unspecified abnormalities of gait and mobility; Z68.29 Body mass index [BMI] 29.0-29.9, adult; Z66 Do not resuscitate; Z86.711 Personal history of pulmonary embolism; Z86.718 Personal history of other venous thrombosis and embolism
CPT/HCPCS: 36416